=== PATIENT | male | born 1955 | race Caucasian/White ===

== ENCOUNTER 2019-08-10 16:51 | Emergency (ER) | payer MEDICARE, OTHER ==
[2019-08-10] MEDS ORDERED: SODIUM CHLORIDE 0.9% (FLUSH) 10 ML SYG IV PRN (17:04)
--- NOTE | 2019-08-10 17:10 | ED.PDOC ---
History of Present Illness - General Time Seen by Provider: 08/10/19 17:04 Source: patient - History of Present Illness Initial Comments: 63 yo male with no reported PMH who presents with cc of left-sided weakness and numbness. Onset suddenly at noon today - reported numbness/tingling sensation in LUE, LLE, and left side of mouth. Also reports slight slurred speech since then as well. Reports having some trouble walking due to LLE weakness. Also r eports chest tightness onset around the same time, located to center of chest, no radiation, 3/10 severity currently, nothing tried for relief, worse with activity. Reports LUE and LLE weakness/numbness improving but not fully resolved. Left mouth numbness now resolved, slurred speech improved but not resolved. No hx of similar sx's. Denies any confusion, headache, vision changes, fevers, chills, dyspnea, cough, leg swelling. Allergies/Adverse Reactions: Allergies NO KNOWN ALLERGY Allergy (Verified 08/10/19 17:19) Home Medications: Ambulatory Orders NK 08/10/19 Review of Systems - Review of Systems Review of Systems: 08/10/19 17:10 as per HPI All other Systems: Reviewed and Negative Family Medical History - Family History Mother Living Status: Hx Family Hypertension: Yes Father Living Status: Hx Family Cancer: Yes - LUMG Physical Exam - Physical Exam General Appearance: Alert, Comfortable, No apparent distress Eye Exam: bilateral normal Ears, Nose, Throat: hearing grossly normal, normal ENT inspection, normal pharynx Neck: non-tender, full range of motion, supple, normal inspection Respiratory: lungs clear, normal breath sounds, no respiratory distress, no accessory muscle use Cardiovascular/Chest: normal peripheral pulses, regular rate, rhythm, no edema, no gallop, no JVD, no murmur Peripheral Pulses: radial,right: 2+, radial,left: 2+ Gastrointestinal/Abdominal: non tender, soft, no organomegaly Back Exam: normal inspection, no CVA tenderness, no vertebral tenderness Extremity: normal range of motion, non-tender, normal inspection, no pedal edema, no calf tenderness, normal capillary refill Neurologic: alert, normal mood/affect, oriented x 3, sensory deficit - reports slight deficit to light touch throughout LUE compared to Right, strength 5+ and equal throughout, no motor drifts of BL UEs or LEs after 10 seconds, slightly slurred speech appreciated, no facial droops Skin Exam: normal color, warm/dry Progress - Progress Progress: 08/10/19 17:11 Stroke-like symptoms -concern for CVA/TIA most likely. Consider also ACS vs CHF vs PE vs PNA vs other -stat CT head wo, cardiac work-up, labs -BP 220s/120s on arrival, remainder of vitals stable. Initial NIH score only 2 (dysarthria, sensory losses, no motor drift or facial droop) -will give NTG SL for HTN & CP, hold ASA until back from CT 08/10/19 18:08 -CT head without acute processes. Labs reveal trop <0.02, d-dimer wnl, K 3.3 (replenished). Otherwise unremarkable. -Pt remains stable. Reports some moderate relief of chest tightness with NTG SL. BP improved to 180s/90s currently. Will give another dose and ASA 324 mg PO. Will obtain CTA head and plan for urgent transfer to [facility] stroke center for acute ischemic CVA. 08/10/19 19:55 -CTA head reveals 20% noncalcified stenosis of the A1 segment of the Right MCA, no other acute processes noted -pt has remained unchanged, NIH score unchanged. Repeat EKG and trop unchanged. -Spoke with neurology at [facility] Dr. Luis, who advises pt may be directly admitted to hospital floor there. Awaiting hospitalist to call back. 08/10/19 20:06 -Spoke with Dr. Still, hospitalist at [facility], who accepts pt for transfer, stable to go via ground EMS. Kojo Hazel MD Billing #[id number] 08/10/19 17:04 IV Care:Saline Lock per [facility] QSHIFT Telemetry .ONCE Sodium Chloride 0.9% (Flush) [Saline Flush Syringe] 10 ml IV PRN PRN EKG Assessment ONCE Pulse Oximetry Assessment DAILY 08/10/19 17:15 EKG STAT 08/10/19 17:30 UA [URINALYSIS] Stat 08/10/19 18:07 CTA Head [CT] Stat 08/11/19 09:00 Pulse Ox Daily Laboratory Results - last 24 hr 08/10/19 08/10/19 08/10/19 17:10 17:10 17:10 WBC 7.5 RBC 4.90 Hgb 14.3 Hct 42.4 MCV 86.4 MCH 29.2 MCHC 33.8 RDW 13.6 Plt Count 183 MPV 8.5 Absolute Neuts (auto) 5.30 Absolute Lymphs (auto) 1.50 Absolute Monos (auto) 0.50 Absolute Eos (auto) 0.10 Absolute Basos (auto) 0.10 Neutrophils % 70.5 Lymphocytes % 20.3 Monocytes % 6.7 Eosinophils % 1.7 Basophils % 0.8 PT 9.6 INR < 1.00 PTT (SP) 23.9 D-Dimer, Quantitative < 131 L Sodium 141 Potassium 3.3 L Chloride 107 Carbon Dioxide 21 Anion Gap 16.3 BUN 16 Creatinine 0.78 BUN/Creatinine Ratio 20.5 H Random Glucose 106 H Serum Osmolality 282.9 Calcium 10.0 Total Bilirubin 0.5 AST 25 ALT 24 Alkaline Phosphatase 55 Troponin I B-Natriuretic Peptide 60.0 Serum Total Protein 7.4 Albumin 4.5 Globulin 2.9 Albumin/Globulin Ratio 1.6 08/10/19 17:10 WBC RBC Hgb Hct MCV MCH MCHC RDW Plt Count MPV Absolute Neuts (auto) Absolute Lymphs (auto) Absolute Monos (auto) Absolute Eos (auto) Absolute Basos (auto) Neutrophils % Lymphocytes % Monocytes % Eosinophils % Basophils % PT INR PTT (SP) D-Dimer, Quantitative Sodium Potassium Chloride Carbon Dioxide Anion Gap BUN Creatinine BUN/Creatinine Ratio Random Glucose Serum Osmolality Calcium Total Bilirubin AST ALT Alkaline Phosphatase Troponin I < 0.02 B-Natriuretic Peptide Serum Total Protein Albumin Globulin Albumin/Globulin Ratio 08/10/19 19:57 - EKG/XRAY/CT EKG: Sinus - sinus tach, HR 105, min [address] segment elevation V1 only likely j point elevation, min <[address] segment depressions in I, aVL, V6, LVH criteria present, slight left axis deviation, intervals normal, no prior EKG for comparison XRAY: chest - no acute processes per my read CT Ordered: Yes - Additional EKG/XRAY/Consults EKG #2: Unchanged from - tachycardia resolved, largely unchanged from initial EKG otherwise Departure - Departure Clinical Impression: Ischemic stroke without coma Chest pain Qualifiers: Chest pain type: other chest pain Qualified Code(s): R07.89 - Other chest pain; R07.8 - Other chest pain Time of Disposition: 20:07 Disposition: Transfer to Hospital Condition: Fair Referrals: CATHRYN BERG MD [Primary Care Provider] - 1-2 Weeks Home Medications: Ambulatory Orders NK 08/10/19 Transfer to Outside Facility - Transfer Information Decision to Transfer Date: 08/10/19 Decision to Transfer Time: 20:08 Reason for Transfer: required specialist not available - neurology Accepting Provider:: Dr. Still Accepting Facility: [facility]
[2019-08-10] MEDS ORDERED: NITROGLYCERIN 0.4 MG 25 EA TAB SL ONE ×2 (17:13→18:07)
--- NOTE | 2019-08-10 17:34 | CT ---
EXAM DESCRIPTION: Head CLINICAL HISTORY: left-sided weakness/numbness, slurred speech COMPARISON: None available TECHNIQUE: Noncontrast head CT was performed with routine protocol. FINDINGS: Normal sinclair-white matter differentiation. Ventricles and sulci are prominent consistent with age-related cerebral volume loss. Low density white matter consistent with chronic microvascular ischemic disease. Old lacunar infarcts in the basal ganglia regions. Metal artifacts from hearing aids and dental amalgam. No high density hemorrhage, focal edema or shift of the midline. No sulcal effacement. Normal orbital contents. Basilar cisterns appear clear. Intact calvarium with no fracture or lytic lesion. Normal aeration of tympanic cavities and mastoid air cells. No fluid levels in the paranasal sinuses. Skull base appears intact. Symmetrical internal auditory canals. IMPRESSION: No acute intracranial pathologic process. This exam was performed according to our departmental dose-optimization program, which includes automated exposure control, adjustment of the mA and/or kV according to patient size and/or use of iterative reconstruction technique. Total DLP equals 967.47 mGycm. Electronically signed by: Geoffrey Weeks MD 08/10/2019 5:33 PM [facility]
--- NOTE | 2019-08-10 17:35 | RAD ---
EXAM DESCRIPTION: Chest,1 View CLINICAL HISTORY: 63 years Male, chest pain, stroke-like symptoms COMPARISON: None. TECHNIQUE: AP portable chest. FINDINGS: Heart size is prominent with normal pulmonary vascularity. No consolidating infiltrate. No pulmonary mass or worrisome nodule. No pneumothorax or pleural effusion. Bones are unremarkable. IMPRESSION: No acute process is identified in the chest. Electronically signed by: Geoffrey Weeks MD 08/10/2019 5:33 PM [employer]
[2019-08-10] MEDS ORDERED: POTASSIUM CHLORIDE 20 MEQ TAB PO ONE (17:41)
[2019-08-10] MEDS ORDERED: ASPIRIN (CHEWABLE) 81 MG TAB PO ONE (18:07)
[2019-08-10 19:13] VITALS: O2SAT 97
--- NOTE | 2019-08-10 19:47 | CT ---
EXAM: PRE AND POSTCONTRAST BRAIN CT AND CTA EXAMINATION. CLINICAL INDICATION: Left-sided weakness and numbness. Slurred speech. COMPARISON: Compared to today's earlier brain CT examination. TECHNIQUE: Using low dose helical CT technique, thin section axial images were performed through the brain before and after the uncomplicated intravenous administration of Omnipaque 300 nonionic iodinated contrast material. Data was transferred to a dedicated CT workstation to facilitate sagittal and coronal reconstruction examinations as well as volumetric 3-D reconstructions. Sample images of volumetric 3-D reconstructions were permanently stored on the PACS system. FINDINGS: There is mild atherosclerotic calcification in the cavernous and supraclinoid internal carotid arteries without stenosis. There is approximately 20% noncalcified possibly atherosclerotic stenosis in the M1 segment of the right middle cerebral artery. The right middle cerebral artery is otherwise normal. The left middle cerebral artery is normal. The A1 segment of the right anterior cerebral artery is diminutive but patent. Flow in the downstream right anterior cerebral artery is via anterior communicating artery. No anterior communicating artery aneurysm. The left anterior cerebral artery is normal. The downstream vertebral arteries, PICA, basilar artery, AICA and superior cerebellar arteries are patent. The posterior cerebral arteries are symmetrically normal. Flow is visualized in both posterior communicating arteries. No evidence of posterior communicating artery aneurysm. Brain volume is normal for age. No intracranial hemorrhage or evidence of large subacute brain infarction. The globes and orbits are grossly normal. No abnormally enhancing structures to suggest intracranial neoplasm, infection, vascular malformation or venous thrombosis. Bones of the skull and skull base are normal. The paranasal sinuses, middle ears and mastoid air cells are clear. IMPRESSION: 1. Noncalcified approximately 20% stenosis in the M1 portion of the right middle cerebral artery without occlusion. Right middle cerebral artery and downstream branches are otherwise normal. 2. Normal anatomic variation of the hypoplastic A1 portion of the right anterior cerebral artery. 3. Great vessels of the brain are otherwise normal. 4. Otherwise, Normal postcontrast brain CT examination. If clinical concern persists, brain MRI should be performed for further detailed evaluation of the brain as clinically warranted. This exam was performed according to our departmental dose-optimization program, which includes automated exposure control, adjustment of the mA and/or kV according to patient size and/or use of iterative reconstruction technique. Electronically signed by: Russell Murillo MD 08/10/2019 7:[address] [facility]
[2019-08-10 20:42] VITALS: BP 192/93; TEMP 98.5
== END 2019-08-10 21:00 | disposition short-term general hospital (02) ==
LOC: ER 16:51
DX: I63.9 Cerebral infarction, unspecified (principal); G81.94 Hemiplegia, unspecified affecting left nondominant side; R47.81 Slurred speech; R07.89 Other chest pain; R00.0 Tachycardia, unspecified

== ENCOUNTER 2019-08-12 20:36 | Emergency (ER) | payer MEDICARE, OTHER ==
--- NOTE | 2019-08-12 21:24 | ED.PDOC ---
History of Present Illness - General Chief Complaint: General Stated Complaint: left arm, left leg numbness Time Seen by Provider: 08/12/19 21:08 Additional Information: Patient is a 63-year-old male who presents to the ED with chief complaint of worsening gait and left arm and leg numbness. Patient indicates he was just discharged today from [facility] with the diagnosis of a stroke. Patient was seen in this ED 2 days ago after he developed left-sided numbness and mild weakness. Patient was diagnosed with ischemic stroke and transferred to [facility] for a higher level of care. Patient was not given thrombolytics as he presented outside of the window of opportunity for administration. Patient indicates that the time of his discharge from the hospital he was walking well with only a slightly antalgic gait. Early this afternoon after patient got home he noticed that his gait was appreciably worse and that he was no longer able to walk on his own. His went out and bought him a walker. Patient indicates he was started on aspirin at [facility] and is not taking any other blood thinners. Patient denies dizziness or headache. - History of Present Illness Allergies/Adverse Reactions: Allergies Codeine Allergy (Verified 08/12/19 21:01) Home Medications: Ambulatory Orders Aspirin [Aspirin Childrens] 81 mg PO DAILY 08/12/19 Atorvastatin Calcium 40 mg PO DAILY 08/12/19 amLODIPine BESYLATE [Norvasc] 5 mg PO DAILY 08/12/19 Review of Systems - Review of Systems Constitutional: States: no symptoms reported. Denies: chills, fever EENTM: States: no symptoms reported Respiratory: Denies: cough, short of breath Cardiology: Denies: chest pain, palpitations Gastrointestinal/Abdominal: Denies: abdominal pain, diarrhea, nausea, vomiting Genitourinary: States: no symptoms reported Musculoskeletal: States: no symptoms reported Neurological: States: see HPI, numbness, pre-existing deficit All other Systems: Reviewed and Negative Past Medical History (General) - Patient Medical History Hx Seizures: No Hx Stroke: Yes Hx Dementia: No Hx Asthma: No Hx of COPD: No Hx Cardiac Disorders: No Hx Congestive Heart Failure: No Hx Pacemaker: No Hx Hypertension: Yes Hx Thyroid Disease: No Hx Diabetes: No Hx Gastroesophageal Reflux: No Hx Renal Disease: No Hx Cancer: No Hx of HIV: No Hx Hepatitis C: No Hx MRSA: No Surgical History: no surgical history - Vaccination History Hx Tetanus, Diphtheria Vaccination: No Hx Influenza Vaccination: No Hx Pneumococcal Vaccination: No - Social History Hx Tobacco Use: No - quit 7-8 years ago Hx Alcohol Use: Yes - daily beer 3-4 Hx Substance Use: No Hx Substance Use Treatment: No Hx Depression: No Family Medical History - Family History Mother Living Status: Hx Family Hypertension: Yes Father Living Status: Hx Family Cancer: Yes - LUMG Physical Exam - Physical Exam General Appearance: Alert, Comfortable, No apparent distress, Well Developed, Well Nourished ENT Exam: normal ENT inspection, pharynx normal Neck: non-tender, full range of motion, supple, normal inspection Respiratory: chest non-tender, lungs clear, normal breath sounds, no respiratory distress, no accessory muscle use Cardiovascular/Chest: normal peripheral pulses, regular rate, rhythm, no edema, no gallop, no JVD, no murmur Gastrointestinal/Abdominal: normal bowel sounds, non tender, soft Back Exam: normal inspection Extremities Exam: non-tender, normal range of motion Mental Status: alert, oriented x 3 aircrewman Exam: normal hearing, normal speech, PERRL Coordination/Gait: normal finger to nose Motor/Sensory: no motor deficit, no sensory deficit, no pronator drift Skin Exam: normal color, warm/dry Progress - Progress Progress: 08/12/19 21:26 Patient presents with acute exacerbation of a very recent stroke diagnosed within the past 2 days. Patient's initial blood pressure was extremely high in the 200s systolic but it has come down to the 170s without any medication. This is an acceptable blood pressure for an evolving ischemic stroke and we will monitor. Will obtain CT head and transfer patient back to [facility] for higher level of care. Patient is not a candidate for thrombolytics because his symptoms began well outside of the 4.5-hour window. 08/12/19 21:28 EKG: Normal sinus rhythm, rate 83, normal axis, normal QRS, normal ST segment, normal T waves, occasional PVC. Negative STEMI. Interpreted by Jimmy Hollingsworth MD. 08/12/19 21:[address] had discussed with the reading radiologist who indicates patient has increased density in the region of previous stroke but no new hemorrhage. I have spoken with Dr. Becker at [facility] who accepts patient in transfer to inpatient from ED. Patient is stable and medically clear for transfer to [facility]. - Results/Orders Results/Orders: 08/12/19 21:08 IV:Start .ONCE Head [CT] Stat 08/12/19 21:09 EKG Assessment ONCE 08/12/19 21:15 EKG STAT Laboratory Results - last 24 hr 08/12/19 08/12/19 08/12/19 20:58 20:58 20:58 WBC 6.3 RBC 4.99 Hgb 14.8 Hct 42.8 MCV 85.8 MCH 29.6 MCHC 34.5 RDW 13.3 Plt Count 178 MPV 9.1 Absolute Neuts (auto) 4.20 Absolute Lymphs (auto) 1.50 Absolute Monos (auto) 0.40 Absolute Eos (auto) 0.20 Absolute Basos (auto) 0.10 Neutrophils % 66.7 Lymphocytes % 23.3 Monocytes % 6.6 Eosinophils % 2.4 Basophils % 1.0 PT 9.7 INR < 1.00 Sodium 138 Potassium 3.3 L Chloride 101 Carbon Dioxide 26 Anion Gap 14.3 BUN 18 Creatinine 1.07 BUN/Creatinine Ratio 16.8 Random Glucose 107 H Serum Osmolality 278.1 Calcium 9.8 Departure - Departure Clinical Impression: Ischemic stroke without coma Disposition: Transfer to Hospital Condition: Fair Home Medications: Ambulatory Orders Aspirin [Aspirin Childrens] 81 mg PO DAILY 08/12/19 Atorvastatin Calcium 40 mg PO DAILY 08/12/19 amLODIPine BESYLATE [Norvasc] 5 mg PO DAILY 08/12/19 Transfer to Outside Facility - Transfer Information Decision to Transfer Date: 08/12/19 Decision to Transfer Time: 21:45 Reason for Transfer: specialized care not available Accepting Facility: [facility]
--- NOTE | 2019-08-12 22:02 | CT ---
PROCEDURE: Head CLINICAL HISTORY: 63 years Male evolving stroke; gait disturbance COMPARISON: 08/10/2019. TECHNIQUE: Contiguous axial CT images obtained through the brain without IV contrast. This exam was performed according to our department optimization program which includes automated exposure control, adjustment of the mA and/or kv according to patient size and/or use of iterative reconstruction technique. FINDINGS: The ventricles and sulci are mildly prominent. No mass lesions. No acute hemorrhage. Microvascular ischemic changes Low density in the anterior and posterior limbs of the right internal capsule/right thalamic region which appears slightly more pronounced in comparison to the previous study suggesting evolving infarcts. Atherosclerotic calcifications in the distal internal carotid arteries. No fluid or significant mucosal thickening in the visualized paranasal sinuses. No depressed calvarial fractures. IMPRESSION: Low density in the anterior and posterior limbs of the right internal capsule/right thalamic region which appears slightly more pronounced in comparison to the previous study suggesting evolving infarcts. The findings were discussed with Dr. Hollingsworth at 9:40 PM. Electronically signed by: Jason Mead MD 08/12/2019 9:43 PM [facility]
[2019-08-12 22:22] VITALS: O2SAT 94
[2019-08-12 22:38] VITALS: BP 173/99; TEMP 98.9
== END 2019-08-12 22:56 | disposition short-term general hospital (02) ==
LOC: ER 20:36
DX: I63.9 Cerebral infarction, unspecified (principal); G81.94 Hemiplegia, unspecified affecting left nondominant side; Z79.82 Long term (current) use of aspirin; Z79.899 Other long term (current) drug therapy; Z88.5 Allergy status to narcotic agent; I10 Essential (primary) hypertension; Z87.891 Personal history of nicotine dependence

== ENCOUNTER → 2019-09-15 | Outpatient (CLI) | payer MEDICARE, OTHER | DX: E04.1 Nontoxic single thyroid nodule (principal) ==

== ENCOUNTER → 2019-10-27 | Outpatient (CLI) | payer MEDICARE, OTHER ==
--- NOTE | 2019-10-28 09:12 | US ---
Thyroid Biopsy, Image-Guided: Biopsy of Thyroid: Ultrasound CLINICAL INFORMATION: 64 years Male. Abnormal nodules in the right lobe of the thyroid gland and in the isthmus. COMPARISON: Ultrasound thyroid gland September 14. TECHNIQUE: Procedure was explained to the patient with risks and benefits. The patient gave verbal and written consent. Sterile preparation draping. 1% xylocaine dermal anesthetic 9-1 mixture with sodium bicarbonate. Sterile ultrasound guidance. A total of 6 passes in the right thyroid nodule; 2 needle samplings with a separate 1.5 inch, 25-gauge needle per sample, and 4 aspirations, with a separate 1.5 inch, 25-gauge needle/10-cc syringe set, per aspiration. Each sample was placed on a separate slide and fixed in 95% alcohol container. 2 aspirated samples were also placed on a slide and fixed in 95% alcohol container. 2 aspirations were fixed with Saccomanno fluid drawn into aspirate needle and rinse injected into Saccomanno container. This process was repeated for the isthmus nodule. Specimens to be sent for pathologic examination at remote facility. . Patient tolerated procedure well. Biopsy #: 1 Nodule reference number based on prior diagnostic ultrasound:1 Maximum size: 1.6 cm Location: right; lower ACR TI-RADS risk category: TR4 (4-6 points) Reason for biopsy: meets ACR TI-RADS criteria Biopsy #: 2 Nodule reference number based on prior diagnostic ultrasound:3 Maximum size: 1.5 cm Location: isthmus; mid ACR TI-RADS risk category: TR4 (4-6 points) Reason for biopsy: meets ACR TI-RADS criteria Complications: None. FINDINGS: Multiple images demonstrate the echogenic needle within the nodule/mass during sampling and aspirations. IMPRESSION: Successful ultrasound guided fine needle sampling and aspiration of right lobe thyroid nodule and mid isthmus thyroid nodule. Both nodules were ACR TI-RADS Risk Category TR 4 Electronically signed by: Josue Linn MD 10/28/2019 9:11 AM CDT
== END ==
LOC: US 08:00
PROVIDERS: ATTEND Family Medicine
DX: E04.1 Nontoxic single thyroid nodule (principal)